=== PATIENT | female | born 1980 | race African-American/Black ===

== ENCOUNTER 2016-12-09 04:02 | Emergency (ER) | payer BC ==
[~2016-12-09] VITALS: Ht 160 cm; Wt 68.1 kg
[~2016-12-09 04:02] MED LIST: MACR100C2 PO; PHEN0.4T PO
[2016-12-09 04:11] VITALS: BP 106/75; PULSE 88; RESP 16; TEMP 98.2; O2SAT 100
[2016-12-09] MEDS ORDERED: PRED20 PO (04:24)
[2016-12-09] MEDS ORDERED: CLIN1CAP5 PO (04:24)
--- NOTE | 2016-12-09 04:26 | PD ---
HPI Chief Complaint: ENT Complaint Time Seen by Provider: 04:19 Travel History International Travel<30 days: No Contact w/Intl Traveler<30days: No Traveled to known affect area: No History of Present Illness HPI 36-year-old female complains of sore throat and hoarseness of the voice. Patient states the symptoms started yesterday. Patient denies any fever chills. Patient states that she has mild intermittent dry cough. Patient denies any chest pain or shortness of breath. Patient denies abdominal pain. Patient denies any nausea vomiting diarrhea. Patient has an IUD in place. PFSH Past Medical History Diminished Hearing: No Reproductive: Yes ( A1 = , TWINS, ONE ) ?: Not LMP: 11/18/16 : 3 Para: 2 Miscarriage: 0 : 1 Social History Alcohol Use: No Tobacco Use: Yes (1 PACK PER WEEK) Substance Use: No Allergies-Medications (Allergen,Severity, Reaction): Coded Allergies: No Known Allergies (Verified , 12/09/16) Reported Meds & Prescriptions Reported Meds & Active Scripts Active No Active Prescriptions or Reported Medications Review of Systems General / Constitutional: No: Fever Eyes: No: Visual changes HENT: Positive: Sore Throat, No: Headaches Cardiovascular: No: Chest Pain or Discomfort Respiratory: No: Shortness of Breath Gastrointestinal: No: Abdominal Pain Genitourinary: No: Dysuria Musculoskeletal: No: Pain Skin: No Rash Neurologic: No: Weakness Psychiatric: No: Depression Endocrine: No: Polydipsia Hematologic/Lymphatic: No: Easy Bruising Physical Exam Narrative GENERAL: Well-nourished, well-developed patient. SKIN: Warm and dry. HEAD: Normocephalic. EYES: No scleral icterus. No injection or drainage. Throat: Erythematous with exudate and edema. NECK: Supple, trachea midline. No JVD. Patient has mild anterior cervical lymphadenopathy. No meningismus CARDIOVASCULAR: Regular rate and rhythm without murmurs, gallops, or rubs. RESPIRATORY: Breath sounds equal bilaterally. No accessory muscle use. GASTROINTESTINAL: Abdomen soft, non-tender, nondistended. MUSCULOSKELETAL: No cyanosis, or edema. BACK: Nontender without obvious deformity. No CVA tenderness. Data Data Last Documented VS Vital Signs Date Time Temp Pulse Resp B/P Pulse Ox O2 Delivery O2 Flow Rate FiO2 12/09/16 04:11 98.2 88 16 106/75 100 MDM Medical Decision Making Medical Screen Exam Complete: Yes Emergency Medical Condition: Yes Differential Diagnosis Differential diagnosis including viral versus strep pharyngitis. Narrative Course 36-year-old female with sore throat. Clindamycin 300 mg by mouth given. Prednisone 20 mg by mouth given. Diagnosis Primary Impression: Pharyngitis Qualified Code: J02.9 - Pharyngitis, unspecified etiology Patient Instructions: General Instructions Additional Instructions: Take medications as directed. Tylenol for fever. Follow-up with personal physician. Return if worse. Med/Other Pt SpecificInfo: Prescription(s) given Scripts Prednisone 20 Mg Tab20 Mg PO BID #10 TAB Prov:Marshall Carrasco MD 12/09/16 Clindamycin 150 Mg Cap2 Tab PO Q6H #80 CAP Prov:Marshall Carrasco MD 12/09/16 Disposition: 01 DISCHARGE HOME Condition: Stable Marshall Carrasco MD Dec 09, 2016 04:26
[2016-12-09] MEDS ORDERED: CLINDAMYCIN 150 MG CAP PO ONE (04:30)
[2016-12-09] MEDS ORDERED: predniSONE 20 MG TAB PO ONE (04:30)
== END 2016-12-09 04:59 | disposition home or self-care (01) ==
LOC: PHED 04:02
DX: J02.9 Acute pharyngitis, unspecified (principal)
CPT/HCPCS: 99282; J7512